=== PATIENT | female | born 1990 | race Caucasian/White ===

== ENCOUNTER → 2022-10-05 | Outpatient (CLI) | payer OTHER ==
[2022-10-05 15:45] LABS: Basophils # (A) 0.03 X 10*3/uL (0.00-0.10); Basophils % (A) 0.4 %; Eosinophils # (A) 0.24 X 10*3/uL (0.04-0.35); Eosinophils % (A) 3.1 %; HCT 40.3 % (37.2-46.3); HGB 13.3 d/dL (12.0-15.0); Lymphocytes % (A) 20.9 %; MCH 30.8 pg (27.0-32.0); MCV 93.3 FL (80.0-97.0); Mean Platelet Volume 11.7 FL (9.5-12.2); Monocytes # (A) 0.69 X 10*3/uL (0.20-1.00); NRBC Per 100 WBC 0 X 10*3/uL (0.00-0.01); Neutrophils # (A) 5.08 X 10*3/uL (1.80-7.70); Neutrophils % (A) 66.3 %; Platelet Count 260 X 10*3/uL (140-440); RBC 4.32 X 10*6/uL (4.10-5.20); WBC 7.66 X 10*3/uL (4.50-10.00)
[2022-10-05 15:46] LABS: Blood Urea Nitrogen 10.8 mg/dL (9.0-27.0); Calcium 9.6 mg/dL (8.7-10.3); Carbon Dioxide 26.6 mmol/L (21.6-31.8); Chloride 104 mmol/L (96-109); Glucose 85 mg/dL (70-110); Potassium 4.4 mmol/L (3.5-5.5); Sodium 142 mmol/L (135-145)
== END | disposition home or self-care (01) ==
LOC: LABPAT 07:04 → LABWHC1 07:04
PROVIDERS: ATTEND Orthopaedic Surgery
DX: Z01.812 Encounter for preprocedural laboratory examination (principal); M23.92 Unspecified internal derangement of left knee
CPT/HCPCS: 80048; 85025

== ENCOUNTER 2022-10-26 05:54 | Day surgery (SDC) | payer OTHER ==
[2022-10-22 17:16] VITALS: BMI 43.7
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
[~2022-10-26 05:54] MED LIST: ceFAZolin 3 GM in SODIUM CHLORIDE 0.9% 100 ML IVPB PRN
[2022-10-26] MEDS ORDERED: HYDROmorphone 0.5 MG/0.5 ML SYRINGE IVP PRN (06:43)
[2022-10-26] MEDS ORDERED: SCOPOLAMINE 1 MG/72 HR PATCH TRANSDERM ONE (06:43)
[2022-10-26] MEDS ORDERED: LACTATED RINGERS 1,000 ML IV SCH (06:43)
[2022-10-26] MEDS ORDERED: fentaNYL (PF) 50 MCG/ML 2 ML AMP IV PRN (06:43)
[2022-10-26] MEDS ORDERED: ONDANSETRON 4 MG/2 ML VIAL IVP ONE (06:43)
[2022-10-26] MEDS ORDERED: LIDOCAINE 1% (10MG/ML) FOR IV START INTRADERMA ONE (07:05)
[2022-10-26] MEDS ORDERED: DEXAMETHASONE SOD PHOSPHATE 4 MG/ML 1 ML VIAL IV ONE (07:07)
[2022-10-26 07:17] LABS: Glucose,Whole Blood 97 mg/dL (70-110)
[2022-10-26] MEDS ORDERED: HYDROmorphone (PF) 1 MG/ML ONE (07:25)
[2022-10-26] MEDS ORDERED: KETOROLAC 15 MG/ML 1 ML VIAL ONE (07:25)
[2022-10-26] MEDS ORDERED: SUCCINYLCHOLINE CHLORIDE 200 MG/10 ML VIAL IV ONE (07:25)
[2022-10-26] MEDS ORDERED: PROPOFOL 10 MG/ML 20 ML VIAL IV ONE (07:25)
[2022-10-26] MEDS ORDERED: LIDOCAINE 2% INJ 20 MG/ML (2 ML VIAL) ONE (07:25)
[2022-10-26] MEDS ORDERED: MIDAZOLAM 2 MG/2 ML VIAL ONE (07:25)
[2022-10-26] MEDS ORDERED: fentaNYL (PF) 50 MCG/ML 2 ML AMP ONE (07:25)
[2022-10-26] MEDS ORDERED: ALBUTEROL HFA INHALER INHALATION ONE (07:25)
[2022-10-26] MEDS ORDERED: EPINEPHrine (PF) 1 ML in SODIUM CHLORIDE 0.9% IRRIGATIO 3,000 ML IRRIGATION ONE ×4 (07:30)
--- NOTE | 2022-10-26 08:41 | P.OP ---
Date of Procedure: 10/26/22 Preoperative Diagnosis: Left knee internal derangement Postoperative Diagnosis: Left knee anterior/posterior lateral meniscal tear, grade 4 chondral injury distal lateral portion lateral femoral condyle Procedure(s) Performed: Left knee arthroscopic partial lateral meniscectomy/microfracture lateral femoral condyle Anesthesia: DANIEL Surgeon: Ty Salas Estimated Blood Loss (ml): 10 Pathology: none sent Condition: stable Disposition: PACU Indications for Procedure: The patient's a 32-year-old female presents after injury to her left knee with persistent pain and mechanical symptoms despite attempted conservative measures. A discussion of the risks and benefits of operative intervention versus continued conservative measures was made with patient. She opted to proceed with surgery. Operative risks to include infection, neurovascular injury, development of blood clots, possible incomplete resolution of symptoms, possible worsening symptoms and need for subsequent procedures was discussed. Informed consent was obtained. Operative Findings: As below Description of Procedure: The patient was brought to the operating room, and after induction of general anesthesia examined the left knee. Collaterals were stable, Mathew was negative, and posterior drawer was negative. The left lower extremity was prepped and draped in a normal fashion. A superior lateral portal was made through a 3 mm skin incision superior and lateral to the patella. This was used for outflow. A lateral portal was made through a 5 mm vertical skin incision lateral to the patella tendon above the joint line. Diagnostic arthroscopy was performed. On inspection of the medial compartment, no significant meniscal or cartilage pathology was noted. On inspection of the notch, the anterior cruciate ligament appeared to be intact. On inspection of the lateral compartment, a macerated tear involving the anterior horn of the lateral meniscus in the white-red junction was noted. This was debrided back to stable base with straight baskets and a motorized shaver. A small oblique tear involving the posterior horn of the lateral meniscus in the white-white junction was noted. This debrided back to stable base with straight baskets. The remaining lateral meniscus was stable and intact. A grade 3/4 chondral injury was noted involving the distal lateral portion of the lateral femoral condyle measuring 8 x 8 mm. There was a loose chondral flap that was debrided back to stable base with a motorized shaver. Microfracture was performed with a power pick breaching the subchondral surface in multiple areas down to the bone marrow elements . On inspection of the patellofemoral articulation, there was chondromalacia however no loose chondral fragments.. The gutters were clear debris. The knee was then thoroughly irrigated. The portals were closed with Steri-Strips in addition to 3-0 simple nylon sutures. A sterile dressing was applied in addition to a compression stocking. The patient was awoken from general anesthesia and transferred to recovery room in good condition. Blood loss was estimated at 10 mL. No complications were incurred.
[2022-10-26 08:49] VITALS: TEMP 97
[2022-10-26 10:00] VITALS: RESP 20
[2022-10-26] MEDS ORDERED: traMADol 50 MG TAB PO ONE (10:00)
[2022-10-26] MEDS ORDERED: traMADol 50 MG TAB ONE (10:00)
[2022-10-26 10:46] VITALS: BP 105/66; PULSE 83
== END 2022-10-26 11:42 | disposition home or self-care (01) ==
LOC: OR 05:54
PROVIDERS: ATTEND Orthopaedic Surgery
DX: S83.282A Other tear of lateral meniscus, current injury, left knee, initial encounter (principal); V89.2XXA Person injured in unspecified motor-vehicle accident, traffic, initial encounter; Z86.59 Personal history of other mental and behavioral disorders; Z79.899 Other long term (current) drug therapy
CPT/HCPCS: 81025; 29881; 29879; J2250; J0330; J1100; J0690; J2405; J0171; J3010; J1170; J1885; J2704; J2001

== ENCOUNTER → 2024-05-29 | Outpatient (CLI) | payer OTHER ==
--- NOTE | 2024-05-29 12:25 | MR ---
EXAMINATION TYPE: MR knee LT wo con DATE OF EXAM: 05/29/2024 12:01 PM COMPARISON: Outside radiograph 07/21/2022 CLINICAL INDICATION: Female, 33 years old with history of M93.262 LT OSTEOCHONDRITIS DISSECANS S83.24 1A, Lt knee pain TECHNIQUE: Multiplanar, multisequence imaging of the left knee knee is performed without IV contrast. FINDINGS: The ACL and PCL are intact. Mild edema on either side of the otherwise intact MCL. LCL complex is intact. Inner margin radial tear affecting the body of the lateral meniscus. There is complex tear extending throughout the anterior horn of the lateral meniscus. Lateral compartment shows severe cartilage loss along the mid weightbearing and mid peripheral aspect of the lateral compartment especially along th e femoral condyle. Extensive subchondral cystic change and reactive marrow edema. The medial meniscus appears intact. Overall medial compartment articular cartilage volume is maintain ed. Patellofemoral compartment shows marginal spurring. There is a shallow superior trochlear groove with lateral patellar translation and intermediate TT-TG distance of 1.6 cm. Moderate irregular cartilage loss throughout the patellofemoral compartment with some reactive subchondral cystic change within t he patella. Some more severe cartilage loss along the mid patella. Extensor mechanism is intact. Nonspecific anterior subcutaneous soft tissue swelling. Trace knee joint effusion. No Rangel's cyst. Normal popliteal artery anatomy. Mild to moderate generalized muscle atrophy. No suspicious bone jackson ow replacement. IMPRESSION: 1. Severe lateral compartmental osteoarthrosis with the most extensive cartilage loss along the mid w eightbearing and mid peripheral aspect of the joint. 2. Complex tear anterior horn lateral meniscus and inner margin radial tear affecting the meniscal ree dy. 3. Moderate overall patellofemoral compartment osteoarthrosis. 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 There is lateral patellar translation and some underlying congenital trochlear dyspla matt. 4. Grade 1 MCL sprain. [facility], , 05/29/2024 12:23 PM
== END | disposition home or self-care (01) ==
LOC: RADMRIMAIN 11:14
PROVIDERS: ATTEND Family Medicine Sports Medicine
DX: S83.282A Other tear of lateral meniscus, current injury, left knee, initial encounter (principal); S83.412A Sprain of medial collateral ligament of left knee, initial encounter; S83.241A Other tear of medial meniscus, current injury, right knee, initial encounter; M93.262 Osteochondritis dissecans, left knee; M17.12 Unilateral primary osteoarthritis, left knee; X58.XXXA Exposure to other specified factors, initial encounter